=== PATIENT | male | born 1985 | race Caucasian/White ===

== ENCOUNTER 2021-03-23 09:45 | Emergency (ER) | payer BC ==
[~2021-03-23] VITALS: Ht 177.8 cm; Wt 131.5 kg
[~2021-03-23 09:45] MED LIST: CLCX100C; CYCL10TA9
[2021-03-23] MEDS ORDERED: fentaNYL INJ 100 MCG/2 ML AMP IVP ONE ×2 (10:30→11:45)
[2021-03-23 10:36] LABS: BASOPHILS # (AUTO) 0.1 10^3/uL (0.0-0.1); BASOPHILS % (AUTO) 1 % (0-10); EOSINOPHILS # (AUTO) 0.1 10^3/uL (0.0-0.3); EOSINOPHILS % (AUTO) 1 % (0-10); HEMATOCRIT 46 % (40-54); HEMOGLOBIN 15.5 g/dL (13.3-17.7); LYMPHOCYTES # (AUTO) 2.9 10^3/uL (1.0-4.0); LYMPHOCYTES % (AUTO) 35 % (12-44); MEAN CORPUSCULAR HEMOGLOBIN 30 pg (25-34); MEAN CORPUSCULAR HGB CONC 34 g/dL (32-36); MEAN CORPUSCULAR VOLUME 90 fL (80-99); MEAN PLATELET VOLUME 11.7 fL (9.0-12.2); MONOCYTES # (AUTO) 0.6 10^3/uL (0.0-1.0); MONOCYTES % (AUTO) 7 % (0-12); NEUTROPHILS # (AUTO) 4.6 10^3/uL (1.8-7.8); NEUTROPHILS % (AUTO) 56 % (42-75); PLATELET COUNT 342 10^3/uL (130-400); WHITE BLOOD COUNT 8.3 10^3/uL (4.3-11.0)
[2021-03-23 10:41] LABS: INR 1.1 (0.8-1.4); PROTHROMBIN TIME PATIENT 14.1 SEC (12.2-14.7)
--- NOTE | 2021-03-23 10:42 | ED GU-Female ---
General Chief Complaint: - Reproductive Stated Complaint: CONSTIPATION,UNABLE TO URINATE Source: patient Exam Limitations: no limitations History of Present Illness Date Seen by Provider: Mar 23, 2021 Time Seen by Provider: 10:37 Initial Comments To ER with reports of constipation. Has not had a bowel movement in 6 days. He had excision of external and internal hemorrhoids in [facility] [place] 3 weeks ago today. No fevers or chills. Starting 3 days ago he developed some diffuse abdominal pain described as a bloating sensation. He feels as though the stool ball is "right there". He feels like he needs to go to the bathroom and have a bowel movement but has been unable to do so. He got on the toilet this morning and tried but noticed some blood in the toilet. He had been without pain and with normal bowel movements until about 3 days ago. He only took his opiate pain medications for 5 days after surgery. Timing/Duration: constant Severity/Quality: moderate Location: other Radiation: none Activities at Onset: none Prior Genitourinary Problems: none Associated Symptoms: denies symptoms Allergies and Home Medications Allergies Coded Allergies: NKANo Known Allergies (Unverified Allergy, Mild, 07/15/08) No Known Drug Allergies (Unverified , 07/21/08) Patient Home Medication List Home Medication List Reviewed: Yes Celecoxib (Celebrex) 100 Mg Capsule, (Reported) Entered as Reported by: BONILLA FOSS on 07/21/08 105 Cyclobenzaprine Hcl (Cyclobenzaprine Hcl) 10 Mg Tablet, (Reported) Entered as Reported by: BONILLA FOSS on 07/21/08 1056 Review of Systems Review of Systems Constitutional: see HPI; No chills, No fever EENTM: see HPI Respiratory: no symptoms reported Cardiovascular: no symptoms reported Gastrointestinal: abdominal pain, constipation Genitourinary: no symptoms reported Musculoskeletal: no symptoms reported Skin: no symptoms reported Psychiatric/Neurological: No Symptoms Reported Endocrine: No Symptoms Reported Hematologic/Lymphatic: No Symptoms Reported Physical Exam Vital Signs Vital Signs - First Documented 03/23/21 10:08 Temp 37.2 Pulse 117 Resp 18 B/P (MAP) 111/80 (90) Pulse Ox 96 O2 Delivery Room Air Capillary Refill : Height, Weight, BMI Height: '" Weight: lbs. oz. kg; BMI Method: General Appearance: WD/WN, no apparent distress HEENT: PERRL/EOMI, normal ENT inspection Neck: non-tender, full range of motion Respiratory: no respiratory distress, no accessory muscle use Gastrointestinal: normal bowel sounds, soft, tenderness, other (Virk catheter started and is still draining. Currently at 750 mils of clear yellow urine) Rectal: other (Digital rectal exam reveals a tender anus, a little bit of blood but no active bleeding. There is a large amount of soft stool in the rectum. Mineral oil enema was given. We will check back in a few minutes.) Extremities: normal range of motion, non-tender Neurologic/Psychiatric: alert, normal mood/affect, oriented x 3 Skin: normal color, warm/dry Progress/Results/Core Measures Suspected Sepsis SIRS Temperature: Pulse: Respiratory Rate: Laboratory Tests 03/23/21 10:32: White Blood Count 8.3 Blood Pressure / Mean: Laboratory Tests 03/23/21 10:32: Creatinine 0.91, INR Comment 1.1, Platelet Count 342, Total Bilirubin 0.6 Results/Orders Lab Results Laboratory Tests Test 03/23/21 10:25 03/23/21 10:32 Range/Units Urine Color YELLOW Urine Clarity CLEAR Urine pH 6.5 5-9 Urine Specific Hume 1.020 1.016-1.022 Urine Protein NEGATIVE NEGATIVE Urine Glucose (UA) NEGATIVE NEGATIVE Urine Ketones NEGATIVE NEGATIVE Urine Nitrite NEGATIVE NEGATIVE Urine Bilirubin NEGATIVE NEGATIVE Urine Urobilinogen 0.2 < = 1.0 MG/DL Urine Leukocyte Esterase NEGATIVE NEGATIVE Urine RBC (Auto) NEGATIVE NEGATIVE Urine RBC NONE /HPF Urine WBC NONE /HPF Urine Crystals NONE /LPF Urine Bacteria NEGATIVE /HPF Urine Casts NONE /LPF Urine Mucus SMALL H /LPF Urine Culture Indicated NO White Blood Count 8.3 4.3-11.0 10^3/uL Red Blood Count 5.14 4.30-5.52 10^6/uL Hemoglobin 15.5 13.3-17.7 g/dL Hematocrit 46 40-54 % Mean Corpuscular Volume 90 80-99 fL Mean Corpuscular Hemoglobin 30 25-34 pg Mean Corpuscular Hemoglobin Concent 34 32-36 g/dL Red Cell Distribution Width 12.4 10.0-14.5 % Platelet Count 342 130-400 10^3/uL Mean Platelet Volume 11.7 9.0-12.2 fL Immature Granulocyte % (Auto) 0 % Neutrophils (%) (Auto) 56 42-75 % Lymphocytes (%) (Auto) 35 12-44 % Monocytes (%) (Auto) 7 0-12 % Eosinophils (%) (Auto) 1 0-10 % Basophils (%) (Auto) 1 0-10 % Neutrophils # (Auto) 4.6 1.8-7.8 10^3/uL Lymphocytes # (Auto) 2.9 1.0-4.0 10^3/uL Monocytes # (Auto) 0.6 0.0-1.0 10^3/uL Eosinophils # (Auto) 0.1 0.0-0.3 10^3/uL Basophils # (Auto) 0.1 0.0-0.1 10^3/uL Immature Granulocyte # (Auto) 0.0 0.0-0.1 10^3/uL Prothrombin Time 14.1 12.2-14.7 SEC INR Comment 1.1 0.8-1.4 Sodium Level 140 135-145 MMOL/L Potassium Level 3.9 3.6-5.0 MMOL/L Chloride Level 106 98-107 MMOL/L Carbon Dioxide Level 23 21-32 MMOL/L Anion Gap 11 5-14 MMOL/L Blood Urea Nitrogen 16 7-18 MG/DL Creatinine 0.91 0.60-1.30 MG/DL Estimat Glomerular Filtration Rate 95 BUN/Creatinine Ratio 18 Glucose Level 114 H 70-105 MG/DL Calcium Level 10.2 H 8.5-10.1 MG/DL Corrected Calcium 8.5-10.1 MG/DL Total Bilirubin 0.6 0.1-1.0 MG/DL Aspartate Amino Transf (AST/SGOT) 21 5-34 U/L Alanine Aminotransferase (ALT/SGPT) 49 0-55 U/L Alkaline Phosphatase 55 40-136 U/L Total Protein 7.7 6.4-8.2 GM/DL Albumin 4.7 H 3.2-4.5 GM/DL My Orders Orders - MATTHEW HERNANDEZ [employer] Cbc With Automated Diff (03/23/21 10:29) Comprehensive Metabolic Panel (03/23/21 10:29) Protime With Inr (03/23/21 10:29) Ed Iv/Invasive Line Start (03/23/21 10:29) Acute Abd Series (03/23/21 10:29) Fentanyl Inj (Sublimaze Injection) (03/23/21 10:30) Ua Culture If Indicated (03/23/21 10:36) Lidocaine 2% (Urojet) (Xylocaine Urojet) (03/23/21 10:45) Mineral Oil Enema (Fleet Oil Enema) (03/23/21 10:45) Na Phos/Na Biphos Enema (Fleet Enema Dirk (03/23/21 10:45) Fentanyl Inj (Sublimaze Injection) (03/23/21 11:45) Lactated Ringers (Lr 1000 Ml Iv Solution (03/23/21 13:15) Hydromorphone Injection (Dilaudid Inject (03/23/21 14:00) Lactated Ringers (Lr 1000 Ml Iv Solution (03/23/21 14:00) Lidocaine 2% (Urojet) (Xylocaine Urojet) (03/23/21 14:00) Medications Given in ED Current Medications Medications Dose Ordered Sig/Shaun Route Start Time Stop Time Status Last Admin Dose Admin Fentanyl Citrate 50 mcg ONCE ONCE IVP 03/23/21 10:30 03/23/21 10:31 DC 03/23/21 10:49 50 MCG Fentanyl Citrate 50 mcg ONCE ONCE IVP 03/23/21 11:45 03/23/21 11:46 DC 03/23/21 12:21 50 MCG Lidocaine HCl 10 ml ONCE ONCE TOP 03/23/21 10:45 03/23/21 10:46 DC 03/23/21 10:51 10 ML Mineral Oil 1 ea ONCE ONCE AK 03/23/21 10:45 03/23/21 10:46 DC 03/23/21 12:22 1 EA Sodium Biphosphate/ Sodium Phosphate 1 ea ONCE ONCE AK 03/23/21 10:45 03/23/21 10:46 DC 03/23/21 12:22 1 EA Vital Signs/I&O 03/23/21 10:08 Temp 37.2 Pulse 117 Resp 18 B/P (MAP) 111/80 (90) Pulse Ox 96 O2 Delivery Room Air Capillary Refill : Departure Communication (Admissions) 1229-after a fleets enema and mineral oil enema he did have a large bowel movement with blood streaks on the outside of it. He now has quite a bit of rectal pain as expected. He has MiraLAX at home that he is going to start using to prevent this from happening again. He lives in [facility] [place] and will be going back there in about 24 hours. He is in the process of moving here to [place], his works for [employer] 1316-while at the discharge desk patient became very diaphoretic and felt like he was going to pass out. Blood pressure 71/41. He states that he is not been eating anything and not drinking as much as usual but he is drinking. When I had brought him back to room 1, started an IV again, 1 L of IV fluids infusing and blood pressure up to 100/75 at this time. Heart rate is 91. Reports persistent rectal pain at 9 out of 10 but states this is pretty typical after he has a bowel movement ever since he has had surgery. 1400-quite a bit of pain, wanted to get up and move around. Blood pressure is up to 108 over 70s. Offered him some Dilaudid, more topical lidocaine, and additional bag of IV fluids. He declined all of those things. He states that he is only got [address] and his will be off work later. He is feeling good enough that he would like to defer additional medications and go on home. He was ambulatory out of ER without assistive device. No additional bowel movement or rectal bleeding since he left the first time about 1 hour ago. Impression Primary Impression: Constipation Disposition: 01 HOME, SELF-CARE Condition: Stable Departure-Patient Inst. Decision time for Depature: 12:02 Referrals: NO,LOCAL PHYSICIAN (PCP/Family) Primary Care Physician Patient Instructions: Constipation, Adult (DC) Add. Discharge Instructions: 1. Use your MiraLAX 1-2 capfuls a day. All discharge instructions reviewed with patient and/or family. Voiced understanding. MATTHEW HERNANDEZ [employer] HELPER Mar 23, 2021 10:42
[2021-03-23] MEDS ORDERED: MINERAL OIL ENEMA 133 ML BTL PR ONE (10:45)
[2021-03-23] MEDS ORDERED: FLEET ENEMA ADULT 1 EA BTL PR ONE (10:45)
[2021-03-23] MEDS ORDERED: LIDOCAINE UROJET 2% GEL 10 ML PKG TOP ONE ×2 (10:45→14:00)
[2021-03-23 10:49] LABS: ALANINE AMINOTRANSFERASE 49 U/L (0-55); ALBUMIN 4.7 GM/DL (3.2-4.5); ALKALINE PHOSPHATASE 55 U/L (40-136); BILIRUBIN,TOTAL 0.6 MG/DL (0.1-1.0); BUN/CREATININE RATIO 18; CALCIUM 10.2 MG/DL (8.5-10.1); CARBON DIOXIDE 23 MMOL/L (21-32); CHLORIDE 106 MMOL/L (98-107); CREATININE SERUM 0.91 MG/DL (0.60-1.30); GFR ESTIMATED 95; GLUCOSE 114 MG/DL (70-105); POTASSIUM 3.9 MMOL/L (3.6-5.0); SODIUM 140 MMOL/L (135-145); TOTAL PROTEIN 7.7 GM/DL (6.4-8.2)
[2021-03-23 10:50] LABS: BILIRUBIN,URINE NEGATIVE (NEGATIVE); CLARITY,URINE CLEAR; COLOR,URINE YELLOW; GLUCOSE, URINE (UA) NEGATIVE (NEGATIVE); KETONES,URINE NEGATIVE (NEGATIVE); LEUKOCYTE ESTERASE ,URINE NEGATIVE (NEGATIVE); NITRITE,URINE NEGATIVE (NEGATIVE); PH,URINE 6.5 (5-9); PROTEIN,URINE NEGATIVE (NEGATIVE)
[2021-03-23 11:03] LABS: BACTERIA,URINE NEGATIVE /HPF
--- NOTE | 2021-03-23 11:45 | Diagnostic Imaging Report ---
INDICATION: Abdominal and chest pain COMPARISON: None. FINDINGS: Acute abdominal series demonstrates a normal chest. There is minimal constipation without obstruction or ileus. There is no free air. Osseous structures normal. IMPRESSION: Minimal constipation. Dictated by: Dictated on workstation # [id number]
[2021-03-23] MEDS ORDERED: LACTATED RINGERS 1,000 ML IV SCH ×2 (13:15→14:00)
[2021-03-23] MEDS ORDERED: HYDROmorphone 2 MG/ML VIAL (DILAUDID) IV ONE (14:00)
[2021-03-23 14:05] VITALS: BP 108/61
== END 2021-03-23 14:05 | disposition home or self-care (01) ==
LOC: EDUNIT# 09:45 → ER 09:47
DX: K59.00 Constipation, unspecified (principal); Z96.0 Presence of urogenital implants
CPT/HCPCS: 36415; 74022; 80053; 81000; 85025; 85610